=== PATIENT | female | born 1995 | race Caucasian/White ===

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

== ENCOUNTER → 2018-03-24 | Outpatient (CLI) | payer BC ==
[~2018-03-24] MED LIST changes: +ACET1TAB43 PO; +DOCU100C37 PO; +FERR325T18 PO; +IBUP-1773 PO
--- NOTE | 2018-03-24 16:00 | Diagnostic Imaging Report ---
INDICATION: survey. TECHNIQUE: Multiple real-time grayscale images were obtained over the gravid uterus. COMPARISON: None. FINDINGS: There is a single live fetus in a variable presentation. heart rate was recorded at 150 beats per minute. Placenta is anterior. Amniotic fluid volume is normal. survey demonstrates kidneys, bladder and stomach to be unremarkable. brain is unremarkable. There is a four-chamber heart. There is a three-vessel cord with normal insertion. The spine is unremarkable. Biometrical measurements are as follows: Biparietal 4.49 cm, age 19 weeks 5 days. Head circumference 17.76 cm, age 20 weeks 2 days. Abdominal circumference 15.48 cm, age 20 weeks 5 days. Femur length 3.42 cm, age 20 weeks 6 days. Sonographic estimate age: 20 weeks 3 days. Sonographic estimated date of delivery: 08/08/18. Estimated Weight: 365 gm (+/- 53 gm). LMP percentile: 47%. heart rate: 150 beats per minute. number: 1 of 1. IMPRESSION: Single live IUP 20 weeks 3 days gestational age. The estimated date of confinement sonographically is 08/08/2018. No complicating features are identified. Dictated by: Dictated on workstation # [id number]
== END ==
LOC: RAD 13:36
PROVIDERS: ATTEND Obstetrics & Gynecology
DX: Z36.89 Encounter for other specified antenatal screening (principal); Z3A.20 20 weeks gestation of pregnancy
CPT/HCPCS: 76805

== ENCOUNTER 2018-07-29 18:50 | Inpatient (IN) | payer BC ==
[~2018-07-29] VITALS: Ht 170.2 cm; Wt 77.1 kg
[2018-07-29] MEDS: D5 LR IV SOLUTION 1,000 ML IV SCH ×2 (08:00→22:11)
--- NOTE | 2018-07-29 18:55 | NUR ---
KAVYA JUNIOR presented to unit via from ED for induction of labor, accompanied by and mom. KAVYA JUNIOR weighed, gowned, voided, and to bed. EFHM and TOCO applied, VS taken. KAVYA JUNIOR oriented to bed controls, call light, TV, heat, and A/C controls.
--- OUTSIDE RECORDS SUMMARY | 2018-07-29 19:11 | XMS REPORT ---
Author Author GENOVEVA CABRERA Organization [employer] Address Unknown Phone Unavailable Care Team Providers Care Coffee Maker Servicer Name Role Phone GENOVEVA CABRERA CP Unavailable Allergies No Known Allergies Problems Problem Type Condition Code Onset Dates Condition Status Assessment Encounter for immunization Z23 Active Problem Other general medical examination for administrative purposes V70.3 Active Medications No Known Medications Procedures Procedure Coding System Code Date VARICELLA CPT-4 96162 Apr 18, 2015 SINGLE IMMUNIZATION ADMIN CPT-4 68748 Apr 18, 2015 MENINGOCOCCAL (MENVEO) CPT-4 25196 Apr 18, 2015 IMMUNIZATION ADMIN, EACH ADD (please include units) CPT-4 62352 Apr 18, 2015 Results No Known Results Immunizations Vaccine Administration Date MENINGOCOCCAL (MENVEO) Apr 18, 2015 VARICELLA Apr 18, 2015 Summary Purpose [employer] Submission
--- OUTSIDE RECORDS SUMMARY | 2018-07-29 19:12 | XMS REPORT | Continuity of Care Document ---
Demographics Preferred Language Unknown Marital Status Unknown Druze Affiliation Unknown Race Unknown Ethnic Group Unknown Author Author [facility] Address Unknown Phone Unavailable Allergies Active Description Code Type Severity Reaction Onset Reported/Identified Relationship to Patient Clinical Status Yes No Known Drug Allergies [id number] Drug Allergy Unknown N/A 04/11/2013 Medications There is no data. Problems Date Dx Coded Attending Type Code Diagnosis Diagnosed By 11/12/2012 V70.3 SPORTS PHYSICAL 04/11/2013 SUSAN MALDONADO Ot 034.0 STREP SORE THROAT 04/11/2013 SUSAN MALDONADO Ot 462 ACUTE PHARYNGITIS 11/15/2015 SUSAN MALDONADO Ot T63.441A TOXIC EFFECT OF [place]OM [place], ACCIDENTA 11/15/2015 SUSAN MALDONADO Ot T78.3XXA ANGIONEUROTIC EDEMA, INITIAL ENCOUNTER 11/16/2015 SUSAN MALDONADO Ot T63.441A TOXIC EFFECT OF [place]OM [place], ACCIDENTA 11/16/2015 SUSAN MALDONADO Ot T78.3XXA ANGIONEUROTIC EDEMA, INITIAL ENCOUNTER 11/17/2015 SUSAN MALDONADO Ot T63.441A TOXIC EFFECT OF VENOM OF [place], ACCIDENTA 11/17/2015 SUSAN MALDONADO Ot T78.3XXA ANGIONEUROTIC EDEMA, INITIAL ENCOUNTER 08/01/2016 MASOUD WILSON DO Ot D62 ACUTE POSTHEMORRHAGIC ANEMIA 08/01/2016 MASOUD WILSON DO Ot O13.4 GESTATNL HTN WITHOUT SIGNIFICANT PROTEIN 08/01/2016 MASOUD WILOSN DO Ot O70.21 THIRD DEGREE PERINEAL LACERATION DURING 08/01/2016 MASOUD WILSON DO Ot O90.81 ANEMIA OF THE PUERPERIUM 08/01/2016 MASOUD WILSON DO Ot Z37.0 SINGLE LIVE 08/01/2016 MASOUD WILSON DO, Ot Z3A.39 39 WEEKS GESTATION OF 03/25/2018 MASOUD WILSON DO Ot Z36.89 ENCOUNTER FOR OTHER SPECIFIED 03/25/2018 MASOUD WILSON DO, Ot Z3A.20 20 WEEKS GESTATION OF Procedures Code [place] [address] VISUAL ACUITY SCREEN 11/19/2012 [id number] REPAIR ANAL SPHINCTER, OPEN APPROACH 07/31/2016 [id number] DIVISION OF FEMALE PERINEUM, EXTERNAL AP 07/31/2016 12I67S6 EXTRACTION OF PRODUCTS OF CONCEPTION, [place] 07/31/2016 [id number] INTRODUCE OF OTH THERAP SUBST INTO MOUTH 07/31/2016 Results Test Result Range Complete blood count (CBC) with automated white blood cell (WBC) differential - 07/30/16 20:00 Blood leukocytes automated count (number/volume) 12.3 10*3/uL 4.3-11.0 Blood erythrocytes automated count (number/volume) 3.54 10*6/uL 4.35-5.85 Venous blood hemoglobin measurement (mass/volume) 10.1 g/dL 11.5-16.0 Blood hematocrit (volume fraction) 29 % 35-52 Automated erythrocyte mean corpuscular volume 83 [foz_us] 80-99 Automated erythrocyte mean corpuscular hemoglobin (mass per erythrocyte) 29 pg 25-34 Automated erythrocyte mean corpuscular hemoglobin concentration measurement ( mass/volume) 34 g/dL 32-36 Automated erythrocyte distribution width ratio 13.2 % 10.0-14.5 Automated blood platelet count (count/volume) 328 10*3/uL 130-400 Automated blood platelet mean volume measurement 9.9 [foz_us] 7.4-10.4 Automated blood neutrophils/100 leukocytes 75 % 42-75 Automated blood lymphocytes/100 leukocytes 17 % 12-44 Blood monocytes/100 leukocytes 7 % 0-12 Automated blood eosinophils/100 leukocytes 1 % 0-10 Automated blood basophils/100 leukocytes 0 % 0-10 Blood neutrophils automated count (number/volume) 9.3 10*3 1.8-7.8 Blood lymphocytes automated count (number/volume) 2.1 10*3 1.0-4.0 Blood monocytes automated count (number/volume) 0.9 10*3 0.0-1.0 Automated eosinophil count 0.1 10*3/uL 0.0-0.3 Automated blood basophil count (count/volume) 0.0 10*3/uL 0.0-0.1 Comprehensive metabolic panel - 07/30/16 20:00 Serum or plasma sodium measurement (moles/volume) 137 mmol/L 135-145 Serum or plasma potassium measurement (moles/volume) 3.0 mmol/L 3.6-5.0 Serum or plasma chloride measurement (moles/volume) 107 mmol/L 98-107 Carbon dioxide 16 mmol/L 21-32 Serum or plasma anion gap determination (moles/volume) 14 mmol/L 5-14 Serum or plasma urea nitrogen measurement (mass/volume) 3 mg/dL 7-18 Serum or plasma creatinine measurement (mass/volume) 0.68 mg/dL 0.60-1.30 Serum or plasma urea nitrogen/creatinine mass ratio 4 NRG Serum or plasma creatinine measurement with calculation of estimated glomerular filtration rate > NRG Serum or plasma glucose measurement (mass/volume) 124 mg/dL 70-105 Serum or plasma calcium measurement (mass/volume) 8.3 mg/dL 8.5-10.1 Serum or plasma total bilirubin measurement (mass/volume) 0.5 mg/dL 0.1-1.0 Serum or plasma alkaline phosphatase measurement (enzymatic activity/volume) 259 U/L 40-136 Serum or plasma aspartate aminotransferase measurement (enzymatic activity/ volume) 16 U/L 5-34 Serum or plasma alanine aminotransferase measurement (enzymatic activity/volume ) 9 U/L 0-55 Serum or plasma protein measurement (mass/volume) 5.8 g/dL 6.4-8.2 Serum or plasma albumin measurement (mass/volume) 3.1 g/dL 3.2-4.5 Serum or plasma uric acid measurement (mass/volume) - 07/30/16 20:00 Serum or plasma uric acid measurement (mass/volume) 4.1 mg/dL 2.6-7.2 Blood type T Indirect antibody screen panel - 07/30/16 20:00 ABO+Rh group AP [facility] Transfusion band number [id number] [facility] Blood group antibody screen NEGATIVE [facility] Complete blood count (CBC) with automated white blood cell (WBC) differential - 08/01/16 06:05 Blood leukocytes automated count (number/volume) 14.3 10*3/uL 4.3-11.0 Blood erythrocytes automated count (number/volume) 3.00 10*6/uL 4.35-5.85 Venous blood hemoglobin measurement (mass/volume) 8.5 g/dL 11.5-16.0 Blood hematocrit (volume fraction) 25 % 35-52 Automated erythrocyte mean corpuscular volume 83 [foz_us] 80-99 Automated erythrocyte mean corpuscular hemoglobin (mass per erythrocyte) 28 pg 25-34 Automated erythrocyte mean corpuscular hemoglobin concentration measurement ( mass/volume) 34 g/dL 32-36 Automated erythrocyte distribution width ratio 13.1 % 10.0-14.5 Automated blood platelet count (count/volume) 330 10*3/uL 130-400 Automated blood platelet mean volume measurement 10.0 [foz_us] 7.4-10.4 Automated blood neutrophils/100 leukocytes 66 % 42-75 Automated blood lymphocytes/100 leukocytes 24 % 12-44 Blood monocytes/100 leukocytes 9 % 0-12 Automated blood eosinophils/100 leukocytes 1 % 0-10 Automated blood basophils/100 leukocytes 1 % 0-10 Blood neutrophils automated count (number/volume) 9.4 10*3 1.8-7.8 Blood lymphocytes automated count (number/volume) 3.4 10*3 1.0-4.0 Blood monocytes automated count (number/volume) 1.2 10*3 0.0-1.0 Automated eosinophil count 0.2 10*3/uL 0.0-0.3 Automated blood basophil count (count/volume) 0.1 10*3/uL 0.0-0.1 Encounters ACCT No. Visit Date/Time Discharge Status Pt. Type Provider Facility Loc./Unit Complaint [id number] 11/12/2012 13:29:00 Document Registration [id number] 03/24/2018 13:36:00 03/24/2018 23:59:59 CLS Outpatient NEALRAQUEL MASOUD BELLAMY S [facility] RAD [id number] 07/30/2016 19:20:00 08/01/2016 13:15:00 DIS Inpatient MASOUD WILSON DO S [facility] LDRP INDUCTION [id number] 11/15/2015 21:10:00 11/15/2015 22:20:00 DIS Emergency SUSAN MALDONADO [facility] ER BEE STING ON RIGHT FOOT [id number] 04/11/2013 12:30:00 04/11/2013 13:29:00 DIS Emergency SUSAN MALDONADO [facility] ER [id number] 07/29/2018 18:50:00 ACT Inpatient MASOUD WILSON DO [facility] LDRP INDUCTION
[2018-07-29 19:24] VITALS: BP 126/82
[2018-07-29] MEDS ORDERED: LACTATED RINGERS 1,000 ML IV SCH (19:37)
[2018-07-29] MEDS ORDERED: MISOPROSTOL 100 MCG (CYTOTEC) TAB PO ONE (19:45)
[2018-07-29] MEDS ORDERED: MINERAL OIL CONCENTRATE 99.9% 15 ML UDC TOP PRN (19:45)
[2018-07-29 20:25] LABS: BASOPHILS % (AUTO) 0 % (0-10); EOSINOPHILS # (AUTO) 0.1 10^3/uL (0.0-0.3); EOSINOPHILS % (AUTO) 1 % (0-10); HEMATOCRIT 37 % (35-52); HEMOGLOBIN 12.9 G/DL (11.5-16.0); LYMPHOCYTES # (AUTO) 2.3 X 10^3 (1.0-4.0); LYMPHOCYTES % (AUTO) 22 % (12-44); MEAN CORPUSCULAR HEMOGLOBIN 32 PG (25-34); MEAN CORPUSCULAR HGB CONC 35 G/DL (32-36); MEAN CORPUSCULAR VOLUME 90 FL (80-99); MEAN PLATELET VOLUME 9.7 FL (7.4-10.4); MONOCYTES # (AUTO) 1.3 X 10^3 (0.0-1.0); MONOCYTES % (AUTO) 12 % (0-12); NEUTROPHILS % (AUTO) 66 % (42-75); PLATELET COUNT 289 10^3/uL (130-400); RED CELL DISTRIBUTION WIDTH 14.6 % (10.0-14.5); WHITE BLOOD COUNT 10.7 10^3/uL (4.3-11.0)
[2018-07-29 21:22] VITALS: BP 137/80
[2018-07-29] MEDS ORDERED: CATHETER FLUSH 10 ML SYR IV SCH (22:00)
[2018-07-29 22:10] VITALS: BP 114/65
[2018-07-29 22:40] VITALS: BP 112/62
[2018-07-29 23:40] VITALS: BP 109/55
--- NOTE | 2018-07-29 23:40 | NUR ---
Strip reviewed with second nurse. Nurses in agreement that strip shows prolonged accelerations at this time.
[2018-07-29] MEDS ORDERED: MISOPROSTOL 100 MCG (CYTOTEC) TAB PO SCH (23:45)
[2018-07-30] VITALS (52 sets, daily range): BP systolic 77–151; BP diastolic 52–87
--- NOTE | 2018-07-30 03:45 | NUR ---
Nurse in to check on pt. Pt is sleeping soundly and does not wake when nurse enters the room.
[2018-07-30] MEDS: D5 LR IV SOLUTION 1,000 ML IV SCH (06:03)
--- NOTE | 2018-07-30 07:33 | History & Physical-OB ---
OB - Chief Complaint & HPI Date/Time Date of Admission: Date of Admission: Jul 29, 2018 at 18:50 Date seen by a Provider: Jul 30, 2018 Time Seen by a Provider: 07:30 Chief Complaint/History OB-Reason for Admission/Chief: Induction of Labor Hx : 2 Hx Para: 1 Expected Date of Delivery: Aug 06, 2018 Gestational Age in Weeks: 38 Gestational Age in Days: 6 History of Labs A pos Antibody neg RI RPR NR HBsAg NR HIV NR GC neg GBS neg Allergies and Home Medications Allergies Coded Allergies: No Known Drug Allergies (Unverified , 04/11/13) Home Medications Acetaminophen with Codeine 1 Each Tablet, 1-2 TAB PO Q4H PRN for MODERATE TO SEVERE PAIN Prescribed by: MASOUD WILSON on 07/31/16455 Cefdinir 250 Mg/5 Ml Susp.recon, 6 ML PO BID Prescribed by: SUSAN DOMÍNGUEZ on 04/11/13 1306 Docusate Sodium 100 Mg Capsule, 100 MG PO BID PRN for CONSTIPATION Prescribed by: MASOUD WILSON on 07/31/16455 Famotidine 20 Mg Tablet, 20 MG PO BID Prescribed by: SUSAN DOMÍNGUEZ on 11/15/15 2210 Ferrous Sulfate 325 Mg Tablet, 325 MG PO DAILY Prescribed by: MASOUD WILSON on 07/31/16455 Ibuprofen 600 Mg Tablet, 600 MG PO Q6H Prescribed by: MASOUD WILSON on 07/31/16455 Prednisone 20 Mg Tab, 40 MG PO DAILY Prescribed by: SUSAN DOMÍNGUEZ on 11/15/15 2210 Patient Home Medication List Home Medication List Reviewed: Yes OB - History Hx of Present Care: Yes Ultrasounds: Normal mid trimester US Obstetrical Complications: None Medical Complications: None Delivery History Hx Blood Disorders: No Adverse Rxn to Tranfusion: No Patient Past Medical History n/a Social History/Family History Alcohol Use: Denies Use Recreational Drug Use: No Immunizations Hepatitis A: Yes Hepatitis B: Yes Tetanus Booster (TDap): Less than 5yrs Date of Influenza Vaccine: Mar 01, 2018 OB - Admission Exam Physical Exam Vitals: Vital Signs 07/30/18 05:53 Temp 98.3 Pulse 100 Resp 18 B/P (MAP) 126/69 (88) HEENT: NCAT Heart: Rhythm Normal Lungs: Clear Abdomen: Gravid Extremities: Normal Reflexes: Normal Cervical Dilatation: 2cm Effacement: 75% Station: -1 Membranes: Intact Heart Rate: 130's Accelerations: Accelerations Present Decelerations: No Decelerations Short Term Variability: Present Care Home Variability: Average (6-25) Contractions on Admission: 6-10 Minutes Apart Gooden Scoring Tool (Modified) Dilation (cm): 1-2cm (1) Effacement (%): 51-79% (2) Descent/Station: -1,0 (2) Cervix Consistency: Soft (2) Cervix Position: Anterior (2) Add 1 point for: Each previous vaginal delivery (1) Gooden Score: 10 Labs Laboratory Tests Test 07/29/18 20:00 Range/Units White Blood Count 10.7 4.3-11.0 10^3/uL Red Blood Count 4.05 L 4.35-5.85 10^6/uL Hemoglobin 12.9 11.5-16.0 G/DL Hematocrit 37 35-52 % Mean Corpuscular Volume 90 80-99 FL Mean Corpuscular Hemoglobin 32 25-34 PG Mean Corpuscular Hemoglobin Concent 35 32-36 G/DL Red Cell Distribution Width 14.6 H 10.0-14.5 % Platelet Count 289 130-400 10^3/uL Mean Platelet Volume 9.7 7.4-10.4 FL Neutrophils (%) (Auto) 66 42-75 % Lymphocytes (%) (Auto) 22 12-44 % Monocytes (%) (Auto) 12 0-12 % Eosinophils (%) (Auto) 1 0-10 % Basophils (%) (Auto) 0 0-10 % Neutrophils # (Auto) 7.0 1.8-7.8 X 10^3 Lymphocytes # (Auto) 2.3 1.0-4.0 X 10^3 Monocytes # (Auto) 1.3 H 0.0-1.0 X 10^3 Eosinophils # (Auto) 0.1 0.0-0.3 10^3/uL Basophils # (Auto) 0.0 0.0-0.1 10^3/uL OB - Assessment/Plan/Diagnosis Assessment Assessment: induction of labor Admission Dx 23 yo @ 39 weeks Elective induction of labor GBS neg Admission Status: Inpatient Order (span 2 midnights) Reason for Inpatient Admission: Induction of labor at term Plan Plan: Induction Induction Method: per Misoprostol Protocol MASOUD WILSON DO Jul 30, 2018 07:33
[2018-07-30] MEDS ORDERED: OXYTOCIN/NORMAL SALINE 500 ML IV SCH (07:43)
[2018-07-30] MEDS ORDERED: OXYTOCIN/NORMAL SALINE 500 ML IV ONE (07:45)
[2018-07-30] MEDS ORDERED: SUFENTA 0.6MCG/ML BUPIVA 0.125 100 ML ONE (07:59)
[2018-07-30] MEDS ORDERED: fentaNYL INJECTION 100 MCG/2 ML AMP ONE (08:17)
[2018-07-30] MEDS ORDERED: BUPIVACAINE 0.25% 30 ML (SENSORCAINE) VIAL ONE (08:17)
[2018-07-30] MEDS ORDERED: LIDOCAINE PF 2% 5 ML (XYLOCAINE) VIAL ONE (08:17)
--- NOTE | 2018-07-30 08:20 | NUR ---
An Painter CRNA, Erica SRNA here for epidural placement. Procedure explained, consent reviewed and signed by anesthesia. Questions answered to patient's satisfaction. Time out taken to verify correct patient/procedure. Patient up to side of bed, assisted into sitting position. Betadine prep done x3 and sterile drape applied. Local done, see anesthesia record. Attempt unsuccessful, will send another provider.
--- NOTE | 2018-07-30 09:13 | NUR ---
Dr. Trujillo called and notified of difficulty with epidural placement. Order for 1mg dilaudid rec'd.
[2018-07-30] MEDS ORDERED: HYDROmorphone 2 MG/ML VIAL (DILAUDID) ONE (09:17)
--- NOTE | 2018-07-30 09:20 | NUR ---
Dr. Bello here for epidural placement. Procedure explained, consent reviewed and signed by anesthesia. Questions answered to patient's satisfaction. Time out taken to verify correct patient/procedure. Patient up to side of bed, assisted into sitting position. Betadine prep done x3 and sterile drape applied. Local done, see anesthesia record. Test dose given, see anesthesia record for drug and dosage. Epidural catheter secured in place. Epidural placement complete. Assisted back into bed, monitors adjusted. Epidural dosed, see anesthesia record. Epidural of Sufenta/Bupvicaine @12 cc/hr stated per pump. Patient tolerated procedure well.
[2018-07-30] MEDS ORDERED: HYDROmorphone 2 MG/ML VIAL (DILAUDID) IV ONE (09:30)
[2018-07-30] MEDS ORDERED: LACTATED RINGERS 1,000 ML IV ONE (10:40)
[2018-07-30] MEDS ORDERED: NALOXONE 0.4 MG/ML 1 ML (NARCAN) VIAL IV PRN (10:45)
[2018-07-30] MEDS ORDERED: EPIDURAL (SUFENTA 0.6MCG/ML BUPIVA 0.125%) 100 ML BAG EPI SCH (10:45)
[2018-07-30] MEDS ORDERED: ONDANSETRON 4 MG/2 ML (SDV) Z0FRAN IV PRN (10:45)
[2018-07-30] MEDS ORDERED: diphenhydrAMINE 50 MG/ML INJ (BENADRYL) IV PRN (10:45)
[2018-07-30] MEDS ORDERED: CATHETER FLUSH 10 ML SYR IV PRN (10:45)
[2018-07-30] MEDS ORDERED: LIDOCAINE/EPI 2% 1:200,00 (XYLOCAINE) 10 ML VIAL ONE (11:59)
[2018-07-30] MEDS: OXYTOCIN/NORMAL SALINE 500 ML IV SCH ×2 (12:22→12:59)
[2018-07-30] MEDS ORDERED: BENZOCAINE/MENTHOL (DERMOPLAST) 56 ML CAN TP PRN (12:45)
[2018-07-30] MEDS ORDERED: WITCH HAZEL(TUCKS) 40 EA JAR TOP PRN (12:45)
[2018-07-30] MEDS ORDERED: MEASLES,MUMPS,RUBELLA 1 EA INJ SQ ONE (12:45)
[2018-07-30] MEDS ORDERED: DIBUCAINE (NUPERCAINAL) 1% OINT 30 GM TOP PRN (12:45)
[2018-07-30] MEDS ORDERED: HYDROcodone/APAP 5 MG/325 MG (LORTAB) TAB PO PRN (12:45)
[2018-07-30] MEDS ORDERED: TETANUS,DIPTH,PERTUSS P/F (BOOSTRIX) 0.5 ML VIAL IM ONE (12:45)
--- NOTE | 2018-07-30 13:01 | OB Labor & Delivery Record ---
L&D History Date of Service Date of Service: Jul 30, 2018 History Expected Date of Delivery: Aug 06, 2018 Gestational Age in Weeks: 38 Hx : 2 Hx Para: 1 Complications Events: Routine care Operative Indications (Cesarea: N/A-Vaginal Delivery Intrapartal Events: None L&D Stage1 Stage One Onset of Labor - Date: Jul 30, 2018 Monitors and Tracing Monitor Mode: External Heart Rate: 135 Monitor Accelerations: Uniform Station: -1 Workforce [employer] Career Manager Variability: Average (6-10) Short Term Variability: Present Presentation: Vertex Vital Signs VS - Last 72 Hours, by Label 07/29/18 07/29/18 07/29/18 07/29/18 19:24 21:22 22:10 22:40 Temp 98.7 Pulse 122 109 93 90 Resp 20 18 18 18 B/P (MAP) 126/82 (97) 137/80 (99) 114/65 (81) 112/62 (79) 07/29/18 07/30/18 07/30/18 07/30/18 23:40 00:40 01:40 02:40 Temp 97.0 Pulse 84 82 74 89 Resp 18 18 18 18 B/P (MAP) 109/55 (73) 114/57 (76) 112/58 (76) 119/72 (88) 07/30/18 07/30/18 07/30/18 07/30/18 03:40 04:40 05:53 07:30 Temp 98.3 98.5 Pulse 75 75 100 Resp 18 18 18 B/P (MAP) 109/55 (73) 108/56 (73) 126/69 (88) 07/30/18 07/30/18 07/30/18 07/30/18 07:45 08:05 08:20 08:28 Pulse 98 82 93 103 Resp 18 18 18 18 B/P (MAP) 126/82 (97) 127/63 (84) 117/59 (78) 132/58 (82) Pulse Ox 100 07/30/18 07/30/18 07/30/18 07/30/18 08:38 08:43 08:47 08:52 Pulse 89 100 114 100 Resp 18 18 18 18 B/P (MAP) 132/74 (93) 129/79 (96) 129/79 (96) 126/77 (93) Pulse Ox 100 100 100 97 07/30/18 07/30/18 07/30/18 07/30/18 08:57 09:02 09:07 09:12 Pulse 108 109 111 90 Resp 18 18 18 18 B/P (MAP) 128/82 (97) 129/75 (93) 151/81 (104) 136/71 (92) Pulse Ox 97 98 100 99 07/30/18 07/30/18 07/30/18 07/30/18 09:17 09:23 09:25 09:27 Pulse 96 110 96 85 Resp 18 18 18 18 B/P (MAP) 133/82 (99) 141/75 (97) 134/76 (95) 126/65 (85) Pulse Ox 99 100 97 97 07/30/18 07/30/18 07/30/18 07/30/18 09:32 09:37 09:42 09:47 Pulse 91 91 98 97 Resp 18 18 18 18 B/P (MAP) 129/61 (83) 124/60 (81) 122/57 (78) 111/62 (78) Pulse Ox 97 97 97 97 07/30/18 07/30/18 07/30/18 07/30/18 09:53 09:57 10:02 10:07 Temp 98.0 Pulse 77 92 98 99 Resp 18 18 18 18 B/P (MAP) 120/62 (81) 120/63 (82) 120/63 (82) 130/65 (86) Pulse Ox 95 97 100 97 07/30/18 07/30/18 07/30/18 07/30/18 10:12 10:17 10:23 10:27 Pulse 102 91 85 89 Resp 18 18 18 18 B/P (MAP) 98/52 (67) 129/56 (80) 117/62 (80) 124/68 (86) Pulse Ox 100 100 100 99 Rupture of Membranes Spontaneous Ruture of Membrane: No Amniotic Membrane Rupture Time: 726 Amniotic Membrane Fluid Desc.: Clear Vaginal Bleeding Description: Normal Show Induction/Anesthesia Epidural Cath Placement - Time: 09 Progress/Notes Pitocin Augmentation started and epidural received shortly after AROM L&D Stage2 Stage Two Stage II Date: Jul 30, 2018 Monitors and Tracing Monitor Mode: External Heart Rate: 135 Monitor Accelerations: Uniform Monitor Decelerations: Early Workforce Investment Act Career Manager Variability: Average (6-10) Short Term Variability: Present Position: Right Occiput Anterior Presentation: Vertex Cord Descript/Complications Cord Vessel Description: 3 Vessels Complications nuchal cord x 1 reduced Delivery Type Infant Delivery Method: Spontaneous Vaginal Anterior Shoulder: Right Episiotomy/Perineal Laceration Laceraction(s)/Extensions: Yes Degree (describe repair) left labial laceration repaired using 3-0 rapide Condition of Infant Delivery 1 minute Comment: 7 5 minute Comment: 9 Notes Live female infant Condition of Infant Condition of : Living Exam: No Observed Abnormalities Resuscitation Resuscitation: N/A - Spontaneous Resp L&D Stage3 Stage Three Stage III Date: Jul 30, 2018 Pictocin Pitocin Administration mu/min: 4 Pitocin ml/hr: 4 Pitocin Administration Comment: Pitocin initiated per Dr. Wilson protocol Placenta Delivery Placenta Delivery: Spontaneous Delivery Summary Summary Estimated blood loss (mL): 350 350 Attending at delivery: Masoud Wilson DO Condition of Delivery Examined: Cervix Examined, Uterus Explored Post Hemorrhage: No Condition of Mother stable Condition of (s) stable MASOUD WILSON DO Jul 30, 2018 13:01
--- NOTE | 2018-07-30 13:02 | Discharge Inst-Women's Service ---
Discharge Inst-Women's Serv Depart Medication/Instructions New, Converted or Re-Newed RX: RX on Chart Final Diagnosis Dr. Wilson in 6 weeks Consults/Follow Up Additional Follow Up: Yes Activity Activity: Activity as Tolerated Driving Instructions: No Driving for 1 Week NO SMOKING: NO SMOKING Nothing Inside Vagina: No Douching, No [place], No Tampons Diet Discharge Diet: No Restrictions Symptoms to Report to : Bleeding Excessive, Pain Increased, Fever Over 101 Degrees F, Vaginal Bleeding Increase, Questions/Concerns For Any Problems or Questions: Contact Your Physician MASOUD WILSON DO Jul 30, 2018 13:02
[2018-07-30] MEDS ORDERED: ACHD5005 PO (13:04)
[2018-07-30] MEDS ORDERED: Benzocaine/Menthol TP (13:04)
[2018-07-30] MEDS ORDERED: DOCU100C37 PO (13:04)
[2018-07-30] MEDS ORDERED: IBUP-844 PO (13:04)
--- NOTE | 2018-07-30 13:52 | Progress Note-Standard ---
Standard Progress Note Progress Notes/Assess & Plan Date Seen by a Provider: Jul 30, 2018 Time Seen by a Provider: 08:20 Progress/Assessment & Plan 0820 till 0900 multiple epidural attmepts without successful placement. dr mcnulty notified PAMELLA KITCHEN CRNA Jul 30, 2018 13:52
[2018-07-30] MEDS ORDERED: CATHETER FLUSH 10 ML SYR IV SCH (14:00)
[2018-07-30] MEDS: IBUPROFEN 600 MG (MOTRIN) TAB PO SCH ×2 (14:44→21:01)
--- NOTE | 2018-07-30 14:45 | NUR ---
Pericare performed, fresh vpad and underwear applied, ice pack to perineum. New gown on. Pt assisted to standing position, ambulates to bathroom without difficulty. +void. Pt ambulates self to room 310 accompanied by RN, S.O., infant. Pt oriented to room and call light. packet explained. Pt denies needs or concerns at this time.
[2018-07-30] MEDS: DOCUSATE SODIUM 100 MG (COLACE) CAP PO SCH (21:01)
[2018-07-31 01:36] VITALS: BP 110/68
[2018-07-31] MEDS: IBUPROFEN 600 MG (MOTRIN) TAB PO SCH ×3 (03:10→14:56)
[2018-07-31 05:53] VITALS: BP 104/55
[2018-07-31 05:57] LABS: BASOPHILS % (AUTO) 0 % (0-10); EOSINOPHILS # (AUTO) 0.1 10^3/uL (0.0-0.3); EOSINOPHILS % (AUTO) 1 % (0-10); HEMATOCRIT 31 % (35-52); HEMOGLOBIN 10.5 G/DL (11.5-16.0); LYMPHOCYTES % (AUTO) 28 % (12-44); MEAN CORPUSCULAR HEMOGLOBIN 31 PG (25-34); MEAN CORPUSCULAR HGB CONC 34 G/DL (32-36); MEAN CORPUSCULAR VOLUME 92 FL (80-99); MEAN PLATELET VOLUME 9.5 FL (7.4-10.4); MONOCYTES # (AUTO) 1.5 X 10^3 (0.0-1.0); MONOCYTES % (AUTO) 14 % (0-12); NEUTROPHILS # (AUTO) 6.1 X 10^3 (1.8-7.8); NEUTROPHILS % (AUTO) 57 % (42-75); PLATELET COUNT 219 10^3/uL (130-400); RED CELL DISTRIBUTION WIDTH 14.6 % (10.0-14.5); WHITE BLOOD COUNT 10.8 10^3/uL (4.3-11.0)
--- NOTE | 2018-07-31 06:44 | Postpartum Progress Note ---
Note Note Day # 1 Subjective: Patient is without complaints. Ambulating, voiding. Tolerating a regular diet without nausea or vomiting. Normal lochia. Pain is well controlled with oral pain medications. Objective: Physical Exam: General - Alert and oriented, no apparent distress Abdomen - Soft, appropriately tender to palpation, non-distended, fundus firm at umbilicus Extremities - no edema, negative [place]'s bilaterally Assessment: PPD 1 NVD Acute blood loss anemia Plan: Routine care. Encourage breast feeding. Encourage ambulation. Ferrous sulfate supplementation. Plan for discharge today Vitals - Labs Vital Signs - I&O Vital Signs Date Time Temp Pulse Resp B/P (MAP) Pulse Ox O2 Delivery O2 Flow Rate FiO2 07/31/18 05:53 97.7 58 104/55 (71) 97 Room Air 07/31/18 01:36 98.9 73 16 110/68 (82) 98 Room Air 07/30/18 21:57 98.0 72 16 119/70 (86) 97 Room Air 07/30/18 18:00 98.9 110 18 125/75 (92) 07/30/18 14:19 99.4 105 18 137/86 (103) 07/30/18 14:04 111 18 126/87 (100) 07/30/18 13:57 103 18 129/75 (93) 07/30/18 13:34 99 18 124/59 (80) 07/30/18 13:20 108 18 137/63 (87) 07/30/18 13:05 104 18 128/62 (84) 07/30/18 12:54 101 18 128/62 (84) 07/30/18 12:50 109 18 77/56 (63) 07/30/18 12:35 103 18 108/56 (73) 07/30/18 12:19 98.9 110 18 124/69 (87) 07/30/18 12:05 129 18 129/75 (93) 07/30/18 11:55 85 18 124/60 (81) 07/30/18 11:35 97.9 95 18 134/71 (92) 07/30/18 11:20 104 18 129/74 (92) 07/30/18 11:05 98 18 118/59 (78) 07/30/18 10:50 101 18 123/59 (80) 07/30/18 10:27 89 18 124/68 (86) 99 07/30/18 10:23 85 18 117/62 (80) 100 07/30/18 10:17 91 18 129/56 (80) 100 07/30/18 10:12 102 18 98/52 (67) 100 07/30/18 10:07 99 18 130/65 (86) 97 07/30/18 10:02 98.0 98 18 120/63 (82) 100 07/30/18 09:57 92 18 120/63 (82) 97 07/30/18 09:53 77 18 120/62 (81) 95 07/30/18 09:47 97 18 111/62 (78) 97 07/30/18 09:42 98 18 122/57 (78) 97 07/30/18 09:37 91 18 124/60 (81) 97 07/30/18 09:32 91 18 129/61 (83) 97 07/30/18 09:27 85 18 126/65 (85) 97 07/30/18 09:25 96 18 134/76 (95) 97 07/30/18 09:23 110 18 141/75 (97) 100 07/30/18 09:17 96 18 133/82 (99) 99 07/30/18 09:12 90 18 136/71 (92) 99 07/30/18 09:07 111 18 151/81 (104) 100 07/30/18 09:02 109 18 129/75 (93) 98 07/30/18 08:57 108 18 128/82 (97) 97 07/30/18 08:52 100 18 126/77 (93) 97 07/30/18 08:47 114 18 129/79 (96) 100 07/30/18 08:43 100 18 129/79 (96) 100 07/30/18 08:38 89 18 132/74 (93) 100 07/30/18 08:28 103 18 132/58 (82) 100 07/30/18 08:20 93 18 117/59 (78) 07/30/18 08:05 82 18 127/63 (84) 07/30/18 07:45 98 18 126/82 (97) 07/30/18 07:30 98.5 I & O 07/31/18 07:00 Intake Total 3000 ml Balance 3000 ml Labs Laboratory Tests 07/31/18 05:45: White Blood Count 10.8, Red Blood Count 3.34L, Hemoglobin 10.5L, Hematocrit 31L , Mean Corpuscular Volume 92, Mean Corpuscular Hemoglobin 31, Mean Corpuscular Hemoglobin Concent 34, Red Cell Distribution Width 14.6H, Platelet Count 219, Mean Platelet Volume 9.5, Neutrophils (%) (Auto) 57, Lymphocytes (%) (Auto) 28, Monocytes (%) (Auto) 14H, Eosinophils (%) (Auto) 1, Basophils (%) (Auto) 0, Neutrophils # (Auto) 6.1, Lymphocytes # (Auto) 3.0, Monocytes # (Auto) 1.5H, Eosinophils # (Auto) 0.1, Basophils # (Auto) 0.0 MASOUD WILSON DO Jul 31, 2018 06:44
[2018-07-31] MEDS ORDERED: PRENATAL VITAMIN 1 EA TAB PO SCH (07:00)
[2018-07-31] MEDS ORDERED: FERROUS SULF 325 MG (IRON) TAB PO SCH (07:00)
--- NOTE | 2018-07-31 07:05 | NUR ---
here. dismissal orders received.
[2018-07-31] MEDS: DOCUSATE SODIUM 100 MG (COLACE) CAP PO SCH (08:49)
[2018-07-31 08:50] VITALS: BP 113/69
--- NOTE | 2018-07-31 08:50 | NUR ---
initial shift assessment completed, see interventions for further. POC reviewed, states understanding.
--- NOTE | 2018-07-31 11:07 | Anesthesia-Regional Post-Op ---
Regional Patient Condition Mental Status: Alert, Oriented x3 Circulation: Same as Pre-Op Headache: Absent Sensation: Full Recovery Motor Block: Absent Post Op Complications Complications None Follow Up Care/Instructions Patient Instructions None needed. Anesthesia/Patient Condition Patient is doing well, no complaints, stable vital signs, no apparent adverse anesthesia problems. No complications reported per nursing. VIRGIL MILLER CRNA Jul 31, 2018 11:07
--- NOTE | 2018-07-31 14:36 | NUR ---
dismissal instructions given, verbalizes understanding. reviewed follow up appointment and Rx's. signature page singed, placed on chart.
--- NOTE | 2018-07-31 15:07 | NUR ---
pt ambulated to private vehicle with this RN, and infant @ side. secured in rear facing car seat. pt stable with no sx's of distress noted.
== END 2018-07-31 15:07 | disposition home or self-care (01) | DRG 806 ==
LOC: LDRP 18:50
PROVIDERS: ADMIT Obstetrics & Gynecology; ATTEND Obstetrics & Gynecology
PROC: 10E0XZZ Delivery of Products of Conception, External Approach (ICD-10-PCS; principal; 2018-07-30)
PROC: 0HQ9XZZ Repair Perineum Skin, External Approach (ICD-10-PCS; 2018-07-30)
DX: O70.0 First degree perineal laceration during delivery (principal); O99.03 Anemia complicating the puerperium; D62 Acute posthemorrhagic anemia; O69.81X0 Labor and delivery complicated by cord around neck, without compression, not applicable or unspecified; Z3A.38 38 weeks gestation of pregnancy; Z37.0 Single live birth
CPT/HCPCS: 36415; 85025; 86850; 86900; 86901

== ENCOUNTER 2018-12-04 22:16 | Emergency (ER) | payer BC ==
[~2018-12-04] VITALS: Ht 170.2 cm; Wt 68.0 kg
[~2018-12-04 22:16] MED LIST changes: +ACHD5005 PO; +Benzocaine/Menthol TP; +IBUP-844 PO
--- NOTE | 2018-12-04 22:28 | ED Chest Pain ---
General Stated Complaint: R ARM AND NECK PAIN Source: patient, family Exam Limitations: no limitations (SEBASTIAN THOMPSON APRN) History of Present Illness Date Seen by Provider: Dec 04, 2018 Time Seen by Provider: 22:25 Initial Comments To ER complaint by mother with reports of right arm pain that extends from the neck down the right arm terminating at the elbow, bilateral upper back pain, tightness in her chest. Symptoms intermittent for about 3 days. Denies anxiety fevers or chills. She cannot identify any alleviating or exacerbating factors. Timing/Duration: 2-3 days Severity/Quality: moderate, tightness Location: shoulder Radiation: neck, shoulders, back Activities at Onset: none ASA po ROOM SERVICE RUNNER: No NTG SL ROOM SERVICE RUNNER: No Associated Symptoms: denies symptoms (SEBASTIAN THOMPSON APRN) Allergies and Home Medications Allergies Coded Allergies: No Known Drug Allergies (Unverified , 04/11/13) Patient Home Medication List Home Medication List Reviewed: Yes (SEBASTIAN THOMPSON APRN) Home Medication List Reviewed: Yes (BRAYAN DICKERSON) Review of Systems Review of Systems Constitutional: see HPI EENTM: No Symptoms Reported Respiratory: No Symptoms Reported Cardiovascular: See HPI, Chest Pain Gastrointestinal: No Symptoms Reported Genitourinary: No Symptoms Reported Musculoskeletal: see HPI, back pain Skin: see HPI Psychiatric/Neurological: No Symptoms Reported Endocrine: No Symptoms Reported (SEBASTIAN THOMPSON APRN) Past Ezwwefe-Nokcwm-Kzfwbb Hx Patient Social History Recent Foreign Travel: No Contact w/Someone Who Travel: No Recent Hopitalizations: No (SEBASTIAN THOMPSON APRN) Immunizations Up To Date Tetanus Booster (TDap): Less than 5yrs PED Vaccines UTD: Yes Date of Influenza Vaccine: Mar 01, 2018 (SEBASTIAN THOMPSON APRN) Seasonal Allergies Seasonal Allergies: No (SEBASTIAN THOMPSON APRN) Past Medical History Surgeries: No Respiratory: No Cardiac: No Neurological: No Reproductive Disorders: No Genitourinary: Yes Gastrointestinal: No Musculoskeletal: No Endocrine: No HEENT: No Cancer: No Psychosocial: No Integumentary: No Blood Disorders: No Adverse Reaction/Blood Tranf: No (SEBASTIAN THOMPSON APRN) Family Medical History Asthma 19 MOTHER Hypertension 19 FATHER No Pertinent Family Hx (SEBASTIAN THOMPSON APRN) Physical Exam Vital Signs Vital Signs - First Documented 12/04/18 22:20 Temp 98.4 Pulse 80 Resp 16 B/P (MAP) 116/85 (95) Pulse Ox 99 O2 Delivery Room Air (BRAYAN DICKERSON) Vital Signs Capillary Refill : (SEBASTIAN THOMPSON APRN) Height, Weight, BMI Height: 5'7.00" Weight: 170lbs. 0.0oz. [id number]; 26.6 BMI Method:Stated General Appearance: No Apparent Distress HEENT: PERRL/EOMI, TMs Normal Respiratory: No Accessory Muscle Use, No Respiratory Distress Cardiovascular: Regular Rate, Rhythm, Normal Peripheral Pulses Gastrointestinal: Normal Bowel Sounds, Non Tender, Soft Extremity: Normal Capillary Refill, Normal Inspection Neurologic/Psychiatric: Alert, Oriented x3 Skin: Normal Color, Warm/Dry (SEBASTIAN THOMPSON APRN) Progress/Results/Core Measures Results/Orders Lab Results Laboratory Tests Test 12/04/18 22:30 Range/Units White Blood Count 9.2 4.3-11.0 10^3/uL Red Blood Count 4.40 4.35-5.85 10^6/uL Hemoglobin 13.2 11.5-16.0 G/DL Hematocrit 38 35-52 % Mean Corpuscular Volume 86 80-99 FL Mean Corpuscular Hemoglobin 30 25-34 PG Mean Corpuscular Hemoglobin Concent 35 32-36 G/DL Red Cell Distribution Width 12.5 10.0-14.5 % Platelet Count 347 130-400 10^3/uL Mean Platelet Volume 9.7 7.4-10.4 FL Neutrophils (%) (Auto) 41 L 42-75 % Lymphocytes (%) (Auto) 49 H 12-44 % Monocytes (%) (Auto) 7 0-12 % Eosinophils (%) (Auto) 2 0-10 % Basophils (%) (Auto) 0 0-10 % Neutrophils # (Auto) 3.8 1.8-7.8 X 10^3 Lymphocytes # (Auto) 4.5 H 1.0-4.0 X 10^3 Monocytes # (Auto) 0.7 0.0-1.0 X 10^3 Eosinophils # (Auto) 0.2 0.0-0.3 10^3/uL Basophils # (Auto) 0.0 0.0-0.1 10^3/uL Troponin I < 0.028 <0.028 NG/ML (BRAYAN DICKERSON) Medications Given in ED Current Medications Medications Dose Ordered Sig/Bill Route Start Time Stop Time Status Last Admin Dose Admin Ibuprofen 800 mg ONCE ONCE PO 12/04/18 22:30 12/04/18 22:31 DC 12/04/18 22:39 800 MG (BRAYAN DICKERSON) Vital Signs/I&O 12/04/18 12/04/18 22:20 22:39 Temp 98.4 98.4 Pulse 80 Resp 16 B/P (MAP) 116/85 (95) Pulse Ox 99 O2 Delivery Room Air (BRAYAN DICKERSON) Diagnostic Imaging Diagonstic Imaging: Xray Plain Films/CT/US/NM/MRI: chest (2v) Comments No acute cardiopulmonary process noted. No osseous abnormalities or soft tissue changes acutely. Reviewed: Reviewed by Me (BRAYAN DICKERSON) Departure Impression Primary Impression: Muscle strain Additional Impression: Tightness in chest Disposition: 01 HOME, SELF-CARE Condition: Stable Departure-Patient Inst. Decision time for Depature: 22:27 (SEBASTIAN THOMPSON APRN) Referrals: GALA WOODY DO (PCP/Family) Primary Care Physician Patient Instructions: Muscle Strain, Chest Pain Add. Discharge Instructions: Tylenol and ibuprofen for pain control Follow-up with your doctor next week SEBASTIAN THOMPSON APRN Dec 04, 2018 22:28 BRAYAN DICKERSON Dec 04, 2018 22:59
[2018-12-04] MEDS ORDERED: METHOCARBAMOL 750 MG (ROBAXIN) TAB PO ONE (22:30)
[2018-12-04] MEDS ORDERED: IBUPROFEN 800 MG (MOTRIN) TAB PO ONE (22:30)
[2018-12-04 22:44] LABS: BASOPHILS % (AUTO) 0 % (0-10); EOSINOPHILS # (AUTO) 0.2 10^3/uL (0.0-0.3); EOSINOPHILS % (AUTO) 2 % (0-10); HEMATOCRIT 38 % (35-52); HEMOGLOBIN 13.2 G/DL (11.5-16.0); LYMPHOCYTES # (AUTO) 4.5 X 10^3 (1.0-4.0); LYMPHOCYTES % (AUTO) 49 % (12-44); MEAN CORPUSCULAR HEMOGLOBIN 30 PG (25-34); MEAN CORPUSCULAR HGB CONC 35 G/DL (32-36); MEAN CORPUSCULAR VOLUME 86 FL (80-99); MEAN PLATELET VOLUME 9.7 FL (7.4-10.4); MONOCYTES # (AUTO) 0.7 X 10^3 (0.0-1.0); MONOCYTES % (AUTO) 7 % (0-12); NEUTROPHILS # (AUTO) 3.8 X 10^3 (1.8-7.8); NEUTROPHILS % (AUTO) 41 % (42-75); PLATELET COUNT 347 10^3/uL (130-400); RED CELL DISTRIBUTION WIDTH 12.5 % (10.0-14.5); WHITE BLOOD COUNT 9.2 10^3/uL (4.3-11.0)
[2018-12-04 23:20] VITALS: BP 105/77
--- NOTE | 2018-12-05 08:06 | Diagnostic Imaging Report ---
PATIENT HISTORY: Chest pain/tightness. Right neck and arm pain. TECHNIQUE: Two views of the chest COMPARISON: None. FINDINGS: The lung volumes are normal. No focal consolidation is seen. No large pleural effusion or pneumothorax is seen. The cardiomediastinal silhouette is normal in size and contour. No acute osseous abnormality is seen. Mild right convex curvature of the thoracic spine is seen. IMPRESSION: No acute pulmonary abnormality seen. Dictated by: Dictated on workstation # [id number]
== END 2018-12-04 23:20 | disposition home or self-care (01) ==
LOC: EDUNIT# 22:16 → ER 22:18
DX: S46.911A Strain of unspecified muscle, fascia and tendon at shoulder and upper arm level, right arm, initial encounter (principal); R07.89 Other chest pain; Z82.49 Family history of ischemic heart disease and other diseases of the circulatory system; X58.XXXA Exposure to other specified factors, initial encounter
CPT/HCPCS: 36415; 71046; 84484; 84703; 85025; 93005

== ENCOUNTER 2022-03-30 11:38 | Emergency (ER) | payer BC ==
[~2022-03-30 11:38] MED LIST changes: +ACET-11 PO; -ACET1TAB43 PO
[2022-03-30] MEDS ORDERED: IOHEXOL 350 MG/ML 100 ML (OMNIPAQUE 350) VIAL IV ONE (12:15)
[2022-03-30] MEDS ORDERED: HOLD METFORMIN - RECEIVED CONTRAST 20 ML VIAL IV SCH (12:15)
[2022-03-30] MEDS ORDERED: NS 100 ML (IVPB) BAG IV ONE (12:15)
--- NOTE | 2022-03-30 13:08 | Diagnostic Imaging Report ---
Clinical indications: Patient with sore throat and swollen lymph nodes on left-sided of neck. Patient diagnosed was strep on [facility] and was given amoxicillin and still taking the antibiotics. EXAM: Axial CT scan the neck soft tissue performed with 75 mL of Omnipaque 350 IV contrast. Sagittal and coronal reformatted images are created. Auto Exposure Controls were utilized during the CT exam to meet ALARA standards for radiation dose reduction. COMPARISON: None. FINDINGS: There is soft tissue swelling involving the left palatine tonsil region. There is a lobulated configurated peripherally enhancing low-density fluid collection in the left retrotonsillar region. This fluid collection is difficult to measure in its entirety due to its configuration, but measures at least 1.9 cm x 2.1 cm x 3.8 cm (AP x Trans x CC) , and has a C shaped configuration. There is mild airway narrowing. There is cervical lymphadenopathy predominantly involving left side of the neck. 1.7 cm x 1.7 cm in greatest axial dimension in the left level 2A region. The nasopharynx, hypopharynx, and laryngeal structures show no significant abnormality. Slightly asymmetric prominence of the air-filled right piriform sinus region. Larynx and vocal cords show no significant abnormality. There are multiple small low-density nodules involving the bilateral thyroid lobes with the largest one measuring roughly 5 mm on the right. Salivary glands are unremarkable. The visualized portions of oral cavity, tongue, sublingual and submandibular regions are unremarkable. The visualized intracranial structures are unremarkable. The visualized upper lung franco are clear. There is straightening of the cervical spine posture. Otherwise cervical spine is unremarkable. There is minimal mucosal thickening involving ethmoid sinus and left maxillary sinus. IMPRESSION: 1: There is enlargement of the left palatine tonsil region concerning for tonsillitis with a left peritonsillar abscess. There is mild narrowing of the airway. 2: There is cervical lymphadenopathy with the left side affected the most. 3.: There are multiple low-density nodules involving the thyroid lobe. Nonemergent thyroid ultrasound would better evaluate. Dictated by: Dictated on workstation # [id number]
--- NOTE | 2022-03-30 13:09 | ED EENT ---
History of Present Illness General Chief Complaint: Oral/Throat Problems Stated Complaint: SORE THROAT/SWOLLEN GLANDS LEFT SIDE Nursing Triage Note: PT AMB TO FT WITH C/O SORE THROAT AND SWOLLEN LYMPH NODES ON L SIDE OF NECK. PT STATES SHE WAS DX WITH STREP ON FRIDAY AT [facility] AND WAS GIVEN AMOXICILLIN AND IS STILL TAKING THAT Source: patient Exam Limitations: no limitations History of Present Illness Date Seen by Provider: Mar 30, 2022 Time Seen by Provider: 11:50 Initial Comments Patient is a 26-year-old female who presents to the emergency department with worsening sore throat. Patient states she was diagnosed with strep on Friday and placed on amoxicillin. She states the symptoms seem to be improving until he began worsening again tomorrow. She states she has some swelling in her left neck as well as left-sided throat pain. She states that she called the clinic and was told she would have steroid called in for her but she has yet to receive it. She denies any drooling or inability to swallow. She dates she does have difficulty fully opening her mouth. Denies any muffled voice or inability to rotate her neck. She has not had a fever in several days. She states she has been taking Tylenol and ibuprofen for the pain. States her LMP was approximately 2 weeks ago. Allergies and Home Medications Allergies Coded Allergies: No Known Drug Allergies (Unverified , 04/11/13) Patient Home Medication List Home Medication List Reviewed: Yes Clindamycin HCl (Clindamycin HCl) 300 Mg Capsule, 300 MG PO Q6H Prescribed by: Celeste Muñiz on 03/30/22 1326 Review of Systems Review of Systems Constitutional: see HPI Eyes: No Symptoms Reported Ears: No Symptoms Reported Nose: no symptoms reported Mouth: no symptoms reported Throat: see HPI Respiratory: no symptoms reported Cardiovascular: no symptoms reported Gastrointestinal: no symptoms reported Past Ofyrwbz-Lckovx-Fpwpnb Hx Patient Social History Tobacco Use?: No Use of E-Cig and/or Vaping dev: No Substance use?: No Alcohol Use?: No Pt feels they are or have been: No Immunizations Up To Date Tetanus Booster (TDap): Unknown PED Vaccines UTD: Yes Influenza Vaccine Up-to-Date: No; Not Current First/Initial COVID19 Vaccinat: DENIES Seasonal Allergies Seasonal Allergies: No Past Medical History Surgery/Hospitalization HX: DENIES Surgeries: No Respiratory: No Cardiac: No Neurological: No Last Menstrual Period: Mar 20, 2022 Reproductive Disorders: No Genitourinary: No Gastrointestinal: No Musculoskeletal: No Endocrine: No HEENT: No Cancer: No Psychosocial: No Integumentary: No Blood Disorders: No Adverse Reaction/Blood Tranf: No Family Medical History Asthma 19 MOTHER Hypertension 19 FATHER No Pertinent Family Hx Physical Exam Vital Signs Vital Signs - First Documented 03/30/22 03/30/22 11:48 13:43 Temp 37.3 Pulse 101 Resp 18 B/P (MAP) 117/76 (90) Pulse Ox 99 O2 Delivery Room Air Height, Weight, BMI Height: 5'7.00" Weight: 150lbs. 0.0oz. 68.784218bz; 26.6 BMI Method:Stated General Appearance: WD/WN, no apparent distress Mouth/Throat: pharynx swelling Neck: full range of motion, supple, lymphadenopathy (L) Cardiovascular: regular rate, rhythm, no edema, no gallop, no JVD, no murmur Respiratory: chest non-tender, lungs clear Gastrointestinal: normal bowel sounds, non tender Neurologic/Psychiatric: alert, normal mood/affect, oriented x 3 Skin: normal color, warm/dry Progress/Results/Core Measures Results/Orders Lab Results Laboratory Tests Test 03/30/22 12:30 Range/Units Urine Test NEGATIVE NEGATIVE My Orders Orders - CELESTE MUÑIZ APRN Ct Neck (Soft Tissue) W (03/30/22 12:02) Iv/Invasive Line Insertion .IV INSERT (03/30/22 12:02) Hcg,Qualitative Urine (03/30/22 12:09) Iohexol Injection (Omnipaque 350 Mg/Ml 1 (03/30/22 12:15) Received Contrast (Hold Metformin- Contr (03/30/22 12:15) Ns (Ivpb) (Sodium Chloride 0.9% Ivpb Bag (03/30/22 12:15) Dexamethasone Injection (Decadron Inje (03/30/22 13:30) Clindamycin Capsule (Cleocin Capsule) (03/30/22 13:30) Medications Given in ED Current Medications Medications Dose Ordered Sig/Bill Route Start Time Stop Time Status Last Admin Dose Admin Clindamycin HCl 450 mg ONCE ONCE PO 03/30/22 13:30 03/30/22 13:31 DC 03/30/22 13:36 450 MG Iohexol 100 ml ONCE ONCE IV 03/30/22 12:15 03/30/22 12:16 DC 03/30/22 12:44 75 ML Sodium Chloride 100 ml ONCE ONCE IV 03/30/22 12:15 03/30/22 12:16 DC 03/30/22 12:45 80 ML Vital Signs/I&O 03/30/22 03/30/22 11:48 13:43 Temp 37.3 37.0 Pulse 101 101 Resp 18 18 B/P (MAP) 117/76 (90) 117/83 Pulse Ox 99 O2 Delivery Room Air Blood Pressure Mean: 90 Progress Progress Note : Progress Note Patient is nontoxic and well-hydrated on exam. She does have some left cervical adenopathy. Mild trismus is also noted. Patient does appear to have some erythema displacement of the left pharyngeal tissues concerning for possible peritonsillar abscess. Patient does not have a muffled voice and has full range of motion of her neck. Due to the trismus, I am unable to fully visualize the oropharynx. CT of the neck with contrast was ordered which does show left tonsillar enlargement and possible peritonsillar abscess versus phlegmon. Patient was given a dose of dexamethasone as well as a dose of clindamycin in the emergency department. She will be discharged home with clindamycin. Discussed importance of follow-up with otolaryngology for further evaluation and treatment. Return precautions for urgent symptomology discussed. Patient verbalized understanding. Departure Impression Primary Impression: Peritonsillar abscess Disposition: 01 HOME, SELF-CARE Condition: Stable Departure-Patient Inst. Decision time for Depature: 13:20 Referrals: MASOUD ESTRELLA MD, JACQUELINE S DO (PCP/Family) Primary Care Physician Patient Instructions: Peritonsillar Abscess, Adult (DC) Add. Discharge Instructions: It is very important to follow-up with otolaryngology for further evaluation. If you have any onset of complete inability to swallow, drooling, or any difficulty breathing please return to the emergency department as soon as possible for further evaluation. All discharge instructions reviewed with patient and/or family. Voiced understanding. Scripts Clindamycin HCl (Clindamycin HCl) 300 Mg Capsule 300 MG PO Q6H for 14 Days, #56 CAP 0 Refills Prov: CELESTE MUÑIZ APRN 03/30/22 CELESTE MUÑIZ APRN Mar 30, 2022 13:09
[2022-03-30] MEDS ORDERED: CLIN-144 PO (13:26)
[2022-03-30] MEDS ORDERED: CLINDAMYCIN 150 MG (CLEOCIN) CAP PO ONE (13:30)
[2022-03-30 13:43] VITALS: BP 117/83
== END 2022-03-30 13:43 | disposition home or self-care (01) ==
LOC: EDUNIT# 11:38 → ER 11:40
DX: J36 Peritonsillar abscess (principal); Z28.310 Unvaccinated for COVID-19
CPT/HCPCS: 70491; 84703

== ENCOUNTER → 2022-09-30 | Outpatient (CLI) | payer BC ==
[~2022-09-30] MED LIST changes: +CLIN-144 PO
--- NOTE | 2022-09-30 19:50 | Diagnostic Imaging Report ---
INDICATION: surveillance. Anatomic survey TECHNIQUE: Multiple real-time grayscale images were obtained over the gravid uterus. COMPARISON: None FINDINGS: Number: Single live Presentation: Breech Placenta: Posterior, not low-lying Amniotic Fluid: FLACO is 16.4 cm. Single largest vertical pocket is 6.7 cm. Heart Rate: 152 bpm BPD: 4.5 cm; consistent with 19 weeks and 5 days HC: 17.3 cm; consistent with 19 weeks and 6 days AC: 16.7 cm; consistent with 21 weeks and 5 days FL: 3.6 cm; consistent with 21 weeks and 2 days EGA from current exam: 20 weeks and 5 days gestation plus or minus 2 weeks CLINTON from current exam: 02/12/2023 CLINICAL DATES: Gestational age 20 weeks and 3 days, CLINTON 02/14/2023 EFW: 410 g +/- 60 grams; this is consistent with the 87th percentile. FINDINGS: anatomic survey was performed. The 3 vessel cord, cord insertion, umbilical arteries, and spine are not well visualized due to position. Right ventricular outflow tract is also not well-visualized. The kidneys, bladder, stomach, intracranial structures, and four-chamber heart are grossly unremarkable. IMPRESSION: 1. Single live intrauterine at approximately 20 weeks and 5 days, with an CLINTON of 02/12/2023. These are within acceptable range of clinical dates. 2. Limited anatomic survey as above. Follow-up is advised. 3. Borderline elevated growth percentile. This could be followed as well. Dictated by: Dictated on workstation # [id number]
== END ==
LOC: RAD 15:00
PROVIDERS: ATTEND Nurse Practitioner Women's Health
DX: Z34.02 Encounter for supervision of normal first pregnancy, second trimester (principal); Z3A.20 20 weeks gestation of pregnancy
CPT/HCPCS: 76805

== ENCOUNTER 2023-02-11 06:40 | Inpatient (IN) | payer BC ==
[~2023-02-11] VITALS: Ht 170.2 cm; Wt 86.2 kg
[2023-02-11] VITALS (72 sets, daily range): BP systolic 107–145; BP diastolic 57–102
[2023-02-11] MEDS ORDERED: LACTATED RINGERS 1,000 ML 500 ML IV PRN (06:45)
[2023-02-11] MEDS ORDERED: MINERAL OIL 30 ML UDC TOP PRN (06:45)
--- OUTSIDE RECORDS SUMMARY | 2023-02-11 06:46 | XMS REPORT ---
Author Author [facility] ter of [facility] ter [facility] Address Unknown Phone Unavailable Care Team Providers Care Line Construction Superintendent Name Role Phone FALGUNIFABIÁN Unavailable PROBLEMS No Known Problems ALLERGIES No Known Allergies ENCOUNTERS from 1997 to 2022-11-23 IMMUNIZATIONS SOCIAL HISTORY No smoking Hx information available REASON FOR REFERRAL No Information MEDICATIONS REASON FOR VISIT MENTAL STATUS ASSESSMENTS PLAN OF TREATMENT Insurance Providers MEDICATIONS ADMINISTERED
--- OUTSIDE RECORDS SUMMARY | 2023-02-11 06:46 | XMS REPORT ---
Author Author Thelma Cole [facility] Organization [facility] Address [address] [place] [address] Care Team Providers Care Foundation Drill Operator Name Role Phone GENOVEVA Cole Unavailable PROBLEMS Type Condition ICD9-CM Code [id number] Code Onset Dates Condition Status SNOMED Code Problem Other general medical examination for administrative purposes V70.3 Active [id number] ALLERGIES No Information ENCOUNTERS Encounter Location Date Diagnosis [facility] [address] [id number] [address] Mar, Encounter for immunization Z23 [facility] [id number], [place] [address] Oct, IMMUNIZATIONS No Known Immunizations SOCIAL HISTORY Never Assessed REASON FOR VISIT PLAN OF CARE VITAL SIGNS Height 67 in 2012-11-12 Weight 137.56 lbs 2012-11-12 Heart Rate 76 bpm 2012-11-12 Respiratory Rate 18 2012-11-12 Blood pressure systolic 102 mmHg Blood pressure diastolic 68 mmHg 2012-10 MEDICATIONS Unknown Medications RESULTS No Results PROCEDURES Procedure Date Ordered Result Body Site VISUAL ACUITY SCREEN November 12, 2012 INSTRUCTIONS MEDICATIONS ADMINISTERED No Known Medications
[2023-02-11] MEDS ORDERED: AMPICILLIN (IV) 2,000 MG in NS (IVPB) 50 ML 50 ML IV SCH (06:47)
[2023-02-11 07:15] LABS: BASOPHILS # (AUTO) 0.1 10^3/uL (0.0-0.1); BASOPHILS % (AUTO) 1 % (0-10); EOSINOPHILS # (AUTO) 0.1 10^3/uL (0.0-0.3); EOSINOPHILS % (AUTO) 1 % (0-10); HEMATOCRIT 31 % (35-52); LYMPHOCYTES # (AUTO) 3.2 10^3/uL (1.0-4.0); LYMPHOCYTES % (AUTO) 32 % (12-44); MEAN CORPUSCULAR HEMOGLOBIN 27 pg (25-34); MEAN CORPUSCULAR HGB CONC 33 g/dL (32-36); MEAN CORPUSCULAR VOLUME 83 fL (80-99); MEAN PLATELET VOLUME 10.5 fL (9.0-12.2); MONOCYTES # (AUTO) 0.9 10^3/uL (0.0-1.0); MONOCYTES % (AUTO) 9 % (0-12); NEUTROPHILS # (AUTO) 5.7 10^3/uL (1.8-7.8); NEUTROPHILS % (AUTO) 57 % (42-75); PLATELET COUNT 307 10^3/uL (130-400); WHITE BLOOD COUNT 10.1 10^3/uL (4.3-11.0)
--- NOTE | 2023-02-11 07:17 | History & Physical-OB ---
OB - Chief Complaint & HPI Date/Time Date of Admission: Date of Admission: Feb 11, 2023 at 06:40 Date seen by a Provider: Feb 11, 2023 Time Seen by a Provider: 07:15 Chief Complaint/History OB-Reason for Admission/Chief: Induction of Labor Hx : 3 Hx Para: 2 Gestational Age in Weeks: 39 Admission Nurse Assessment Rev: Yes Allergies and Home Medications Allergies Coded Allergies: No Known Drug Allergies (Unverified , 04/11/13) Patient Home Medication List Home Medication List Reviewed: Yes Clindamycin HCl (Clindamycin HCl) 300 Mg Capsule, 300 MG PO Q6H Prescribed by: Dakota Muñiz on 03/30/22 1326 OB - History Hx of Present Care: Yes Ultrasounds: Normal mid trimester US Obstetrical Complications: None Medical Complications: None Delivery History Hx Blood Disorders: No Adverse Rxn to Tranfusion: No Patient Past Medical History n/a Immunizations First/Initial COVID19 Vaccine: DENIES Hepatitis A: Yes Hepatitis B: Yes Tetanus Booster (TDap): Unknown OB - Admission Exam Physical Exam HEENT: NCAT Heart: Rhythm Normal Lungs: Clear Abdomen: Gravid Extremities: Normal Reflexes: Normal Cervical Dilatation: 3cm Effacement: 75% Station: -2 Membranes: Intact Heart Rate: 130's Accelerations: Accelerations Present Decelerations: No Decelerations Short Term Variability: Present Glue Mounter Operator Variability: Average (6-25) Contractions on Admission: < 5 Minutes Apart Intensity: Mild Labs Laboratory Tests Test 02/11/23 07:00 Range/Units OB - Assessment/Plan/Diagnosis Assessment Assessment: induction of labor Admission Dx 27 yo @ 39 weeks IOL Admission Status: Inpatient Order (span 2 midnights) Reason for Inpatient Admission: IOL at 39 weeks Plan Plan: Induction Induction Method: AROM MASOUD WILSON DO Feb 11, 2023 07:17
[2023-02-11] MEDS: D5 LR 1,000 ML IV SOLN 1,000 ML IV SCH ×2 (07:29→15:35)
[2023-02-11] MEDS ORDERED: OXYTOCIN DRIP PRE-MIX 500 ML IV ONE (11:30)
[2023-02-11] MEDS: AMPICILLIN (IV) 1,000 MG in NS (IVPB) 50 ML 50 ML IV SCH ×3 (11:47→19:32)
[2023-02-11] MEDS ORDERED: fentaNYL 2 mcg/ml BUPIVA 0.125 100 ML ONE (17:53)
[2023-02-11] MEDS ORDERED: OXYTOCIN DRIP PRE-MIX 500 ML IV SCH (18:15)
[2023-02-11] MEDS ORDERED: BUPIVACAINE 0.25% 10 ML VIAL ONE (18:52)
[2023-02-11] MEDS ORDERED: fentaNYL INJECTION 100 MCG/2 ML VIAL ONE (18:52)
[2023-02-11] MEDS ORDERED: CATHETER FLUSH 10 ML SYR IV PRN (19:30)
[2023-02-11] MEDS ORDERED: fentaNYL 2 mcg/ml BUPIVA 0.125 100 ML EPI SCH (19:30)
[2023-02-11] MEDS ORDERED: NALOXONE 0.4 MG/ML 1 ML VIAL IV PRN ×2 (19:30→22:00)
[2023-02-11] MEDS ORDERED: LACTATED RINGERS 1,000 ML 1,000 ML IV ONE (19:30)
[2023-02-11] MEDS ORDERED: LIDOCAINE 1% INJ 10 ML VIAL ONE (21:38)
[2023-02-11] MEDS ORDERED: LIDOCAINE 1% INJ 10 ML VIAL INJ ONE (22:00)
[2023-02-11] MEDS: IBUPROFEN 600 MG TABLET PO SCH (22:00)
[2023-02-11] MEDS ORDERED: Tetanus/Diphtheria/Pertussis (Acell) ADULT Vaccine 0.5 ML IM ONE (22:00)
[2023-02-11] MEDS ORDERED: WITCH HAZEL(TUCKS) 40 EA JAR TOP PRN (22:00)
[2023-02-11] MEDS ORDERED: CATHETER FLUSH 10 ML SYR IV SCH (22:00)
[2023-02-11] MEDS ORDERED: DIBUCAINE 1% OINTMENT 28 GM TUBE TOP PRN (22:00)
[2023-02-11] MEDS ORDERED: BENZOCAINE/MENTHOL (DERMOPLAST) 56 ML CAN TP PRN (22:00)
[2023-02-11] MEDS ORDERED: MEASLES, MUMPS, RUBELLA VACCINE (MMR) SQ ONE (22:00)
--- NOTE | 2023-02-11 22:01 | OB Labor & Delivery Record ---
L&D History Date of Service Date of Service: Feb 11, 2023 History Expected Date of Delivery: Feb 14, 2023 Gestational Age in Weeks: 39 Hx : 3 Hx Para: 2 Complications Events: Routine care Operative Indications (Cesarea: N/A-Vaginal Delivery Intrapartal Events: None L&D Stage1 Stage One Onset of Labor - Date: Feb 11, 2023 Monitors and Tracing Monitor Mode: External Heart Rate: 135 Monitor Accelerations: Uniform Station: -2 Tie Maker Variability: Average (6-10) Short Term Variability: Present Presentation: Vertex Vital Signs VS - Last 72 Hours, by Label 02/11/23 02/11/23 02/11/23 02/11/23 06:50 07:30 07:45 08:05 Temp 36.5 36.9 36.9 Pulse 107 82 78 77 Resp 18 20 20 20 B/P (MAP) 126/80 (95) 121/77 (92) 132/83 (99) Pulse Ox 98 O2 Delivery Room Air Room Air Room Air Room Air 02/11/23 02/11/23 02/11/23 02/11/23 08:30 08:45 09:00 09:15 Pulse 86 86 80 72 Resp 20 20 20 20 B/P (MAP) 132/85 (101) 129/86 (100) 109/63 (78) 128/80 (96) O2 Delivery Room Air Room Air Room Air Room Air 02/11/23 02/11/23 02/11/23 02/11/23 09:30 09:45 10:00 10:15 Pulse 71 71 70 73 Resp 20 20 20 20 B/P (MAP) 118/74 (89) 115/80 (92) 120/69 (86) 130/81 (97) O2 Delivery Room Air Room Air Room Air Room Air 02/11/23 02/11/23 02/11/23 02/11/23 10:30 10:45 11:00 11:15 Pulse 73 69 77 73 Resp 20 20 20 20 B/P (MAP) 119/76 (90) 121/75 (90) 126/74 (91) 129/85 (100) O2 Delivery Room Air Room Air Room Air Room Air 02/11/23 02/11/23 02/11/23 02/11/23 11:30 11:45 12:00 12:15 Temp 36.4 Pulse 73 79 60 61 Resp 20 20 20 20 B/P (MAP) 134/72 (92) 125/82 (96) 109/57 (74) 110/63 (79) O2 Delivery Room Air Room Air Room Air Room Air 02/11/23 02/11/23 02/11/23 02/11/23 12:30 12:45 13:00 13:15 Pulse 72 90 71 77 Resp 20 20 20 20 B/P (MAP) 107/61 (76) 128/83 (98) 120/77 (91) 120/76 (91) O2 Delivery Room Air Room Air Room Air Room Air 02/11/23 02/11/23 02/11/23 02/11/23 13:30 13:45 14:00 14:15 Temp 36.5 Pulse 75 84 85 69 Resp 20 20 20 20 B/P (MAP) 123/77 (92) 127/84 (98) 124/75 (91) 120/62 (81) O2 Delivery Room Air Room Air Room Air Room Air 02/11/23 02/11/23 02/11/23 02/11/23 14:30 14:45 15:00 15:15 Temp 37.1 Pulse 72 73 76 76 Resp 20 20 20 20 B/P (MAP) 111/59 (76) 136/84 (101) 128/73 (91) 129/71 (90) O2 Delivery Room Air Room Air Room Air Room Air 02/11/23 02/11/23 02/11/23 02/11/23 15:30 15:45 16:00 16:15 Temp 37.1 Pulse 88 78 75 77 Resp 20 20 20 20 B/P (MAP) 124/80 (95) 129/78 (95) 130/80 (97) 132/79 (96) O2 Delivery Room Air Room Air Room Air Room Air 02/11/23 02/11/23 02/11/23 02/11/23 16:30 16:45 17:00 17:15 Pulse 83 95 79 75 Resp 20 20 20 20 B/P (MAP) 138/81 (100) 127/78 (94) 133/79 (97) 134/77 (96) O2 Delivery Room Air Room Air Room Air Room Air 02/11/23 02/11/23 02/11/23 02/11/23 17:30 17:45 18:00 18:18 Temp 37.1 Pulse 83 85 86 81 Resp 20 20 20 20 B/P (MAP) 127/76 (93) 136/79 (98) 134/76 (95) 127/79 (95) O2 Delivery Room Air Room Air Room Air Room Air 02/11/23 02/11/23 02/11/23 02/11/23 18:30 18:45 18:55 19:00 Pulse 93 79 78 93 Resp 20 20 20 20 B/P (MAP) 132/75 (94) 136/75 (95) 132/73 (92) 139/77 (97) Pulse Ox 100 O2 Delivery Room Air Room Air Room Air Room Air 02/11/23 02/11/23 02/11/23 02/11/23 19:05 19:08 19:12 19:16 Pulse 103 96 100 95 Resp 20 20 20 B/P (MAP) 144/82 (102) 133/82 (99) 134/74 (94) 133/77 (95) Pulse Ox 100 100 100 100 O2 Delivery Room Air Room Air Room Air Room Air 02/11/23 02/11/23 02/11/23 02/11/23 19:20 19:23 19:28 19:32 Pulse 93 97 97 114 B/P (MAP) 128/70 (89) 131/70 (90) 136/84 (101) 129/74 (92) Pulse Ox 100 100 100 O2 Delivery Room Air Room Air Room Air Room Air 02/11/23 02/11/23 02/11/23 02/11/23 19:36 19:40 19:44 19:48 Pulse 107 94 88 75 B/P (MAP) 131/72 (91) 130/70 (90) 134/77 (96) 134/73 (93) Pulse Ox 100 100 100 O2 Delivery Room Air Room Air Room Air Room Air 02/11/23 02/11/23 02/11/23 20:03 20:19 20:33 Temp 36.7 Pulse 106 85 93 B/P (MAP) 133/69 (90) 135/79 (97) 134/81 (98) Rupture of Membranes Spontaneous Ruture of Membrane: No Amniotic Membrane Rupture Time: 722 Amniotic Membrane Fluid Desc.: Clear Vaginal Bleeding Description: Normal Show Induction/Anesthesia Epidural Cath Placement - Time: 1905 Progress/Notes Patient admitted for IOL at 39 weeks. AROM performed and Ampicillin started for GBS prophylaxis. She received 2 doses at which point labor was augmented to pitocin, after this epidural was placed and she progressed to complete and + 2 station. L&D Stage2 Stage Two Stage II Date: Feb 11, 2023 Monitors and Tracing Monitor Mode: External Heart Rate: 135 Monitor Decelerations: Variable Half-Way Variability: Average (6-10) Short Term Variability: Present Position: Right Occiput Anterior Presentation: Vertex Cord Descript/Complications Cord Vessel Description: 3 Vessels Complications nuchal cord reduced x 1 Delivery Type Delivery Method: Spontaneous Vaginal Anterior Shoulder: Left Episiotomy/Perineal Laceration Laceraction(s)/Extensions: Yes Episiotomy Description: Periurethral Extnsion/lac, 1st degree Degree (describe repair) laceration repaired using 3-0 vicryl in usual fashion Condition of Delivery 1 minute Comment: 8 5 minute Comment: 9 Notes Live female infant weight 7lbs 6 oz Condition of Infant Condition of : Living Exam: No Observed Abnormalities Resuscitation Resuscitation: N/A - Spontaneous Resp L&D Stage3 Stage Three Stage III Date: Feb 11, 2023 Pictocin Pitocin Administration mu/min: 12 Pitocin ml/hr: 12 Pitocin Administration Comment: 30 mu wide open after delivery of placenta Placenta Delivery Placenta Delivery: Spontaneous Delivery Summary Summary Estimated blood loss (mL): 250 Attending at delivery: Masoud Wilson DO Condition of Delivery Examined: Cervix Examined, Uterus Explored Post Hemorrhage: No Condition of Mother stable Condition of (s) stable MASOUD WILSON DO Feb 11, 2023 22:01
--- NOTE | 2023-02-11 22:02 | Discharge Inst-Women's Service ---
Discharge Inst-Women's Serv Depart Medication/Instructions New, Converted or Re-Newed RX: Transmitted to Pharmacy Final Diagnosis PPD 2 NVD Problems Reviewed?: Yes Consults/Follow Up Additional Follow Up: Yes Orders/Referrals Dr. Wilson in 6 weeks Activity Activity: Activity as Tolerated Driving Instructions: No Driving for 1 Week NO SMOKING: NO SMOKING Nothing Inside Vagina: No Douching, No [place], No Tampons Diet Discharge Diet: No Restrictions Symptoms to Report to : Bleeding Excessive, Pain Increased, Fever Over 101 Degrees F, Vaginal Bleeding Increase, Questions/Concerns For Any Problems or Questions: Contact Your Physician MASOUD WILSON DO Feb 11, 2023 22:02
[2023-02-11] MEDS ORDERED: PNV1TABL67 PO (22:03)
[2023-02-11] MEDS ORDERED: IBUP-844 PO (22:03)
[2023-02-11] MEDS ORDERED: ACET-93 PO (22:03)
[2023-02-11] MEDS ORDERED: FERR325T24 PO (22:03)
[2023-02-11] MEDS ORDERED: DIBU30OI TOP (22:03)
[2023-02-11] MEDS ORDERED: DOCU100C37 PO (22:03)
[2023-02-11] MEDS ORDERED: BENZ78AE5 TP (22:03)
[2023-02-11] MEDS: OXYTOCIN DRIP PRE-MIX 500 ML IV SCH ×2 (22:24→22:52)
[2023-02-11] MEDS: ACETAMINOPHEN 500 MG TABLET PO PRN (23:26)
[2023-02-12] VITALS (7 sets, daily range): BP systolic 119–130; BP diastolic 69–86
[2023-02-12] MEDS: IBUPROFEN 600 MG TABLET PO SCH ×4 (04:58→21:45)
[2023-02-12 05:36] LABS: BASOPHILS # (AUTO) 0.1 10^3/uL (0.0-0.1); BASOPHILS % (AUTO) 0 % (0-10); EOSINOPHILS # (AUTO) 0.1 10^3/uL (0.0-0.3); EOSINOPHILS % (AUTO) 0 % (0-10); HEMATOCRIT 27 % (35-52); HEMOGLOBIN 8.9 g/dL (11.5-16.0); LYMPHOCYTES # (AUTO) 3.3 10^3/uL (1.0-4.0); LYMPHOCYTES % (AUTO) 18 % (12-44); MEAN CORPUSCULAR HEMOGLOBIN 28 pg (25-34); MEAN CORPUSCULAR HGB CONC 33 g/dL (32-36); MEAN CORPUSCULAR VOLUME 83 fL (80-99); MEAN PLATELET VOLUME 10.7 fL (9.0-12.2); MONOCYTES % (AUTO) 11 % (0-12); NEUTROPHILS # (AUTO) 12.6 10^3/uL (1.8-7.8); NEUTROPHILS % (AUTO) 69 % (42-75); PLATELET COUNT 266 10^3/uL (130-400); WHITE BLOOD COUNT 18.1 10^3/uL (4.3-11.0)
--- NOTE | 2023-02-12 08:05 | Postpartum Progress Note ---
Note Note Day # 1 Subjective: Patient is without complaints. Ambulating, voiding. Tolerating a regular diet without nausea or vomiting. Normal lochia. Pain is well controlled with oral pain medications. Objective: Physical Exam: General - Alert and oriented, no apparent distress Abdomen - Soft, appropriately tender to palpation, non-distended, fundus firm at umbilicus Extremities - no edema, negative [place]'s bilaterally Assessment: PPD 1 NVD Acute blood loss anemia Plan: Routine care. Encourage breast feeding. Encourage ambulation. Ferrous sulfate supplementation. Plan for discharge tomorrow Vitals - Labs Vital Signs - I&O Vital Signs Date Time Temp Pulse Resp B/P (MAP) Pulse Ox O2 Delivery O2 Flow Rate FiO2 02/12/23 07:41 36.0 62 20 119/79 (92) Room Air 02/12/23 04:43 36.2 58 20 128/79 (95) 99 Room Air 02/12/23 00:33 37.1 67 16 125/77 (93) 100 Room Air 02/12/23 00:02 93 129/72 (91) 02/11/23 23:32 86 127/61 (83) 02/11/23 22:47 92 127/62 (83) 02/11/23 22:32 105 134/73 (93) 02/11/23 22:17 104 127/89 (102) 02/11/23 22:03 100 131/88 (102) 02/11/23 21:47 101 138/102 (114) 02/11/23 21:34 133 144/90 (108) 02/11/23 21:03 145/78 (100) 02/11/23 20:49 143/85 (104) 02/11/23 20:33 36.7 93 134/81 (98) 02/11/23 20:19 85 135/79 (97) 02/11/23 20:03 106 133/69 (90) 02/11/23 19:48 75 134/73 (93) 100 Room Air 02/11/23 19:44 88 134/77 (96) Room Air 02/11/23 19:40 94 130/70 (90) 100 Room Air 02/11/23 19:36 107 131/72 (91) 100 Room Air 02/11/23 19:32 114 129/74 (92) 100 Room Air 02/11/23 19:28 97 136/84 (101) 100 Room Air 02/11/23 19:23 97 131/70 (90) Room Air 02/11/23 19:20 93 128/70 (89) 100 Room Air 02/11/23 19:16 95 133/77 (95) 100 Room Air 02/11/23 19:12 100 20 134/74 (94) 100 Room Air 02/11/23 19:08 96 20 133/82 (99) 100 Room Air 02/11/23 19:05 103 20 144/82 (102) 100 Room Air 02/11/23 19:00 93 20 139/77 (97) 100 Room Air 02/11/23 18:55 78 20 132/73 (92) Room Air 02/11/23 18:45 79 20 136/75 (95) Room Air 02/11/23 18:30 93 20 132/75 (94) Room Air 02/11/23 18:18 37.1 81 20 127/79 (95) Room Air 02/11/23 18:00 86 20 134/76 (95) Room Air 02/11/23 17:45 85 20 136/79 (98) Room Air 02/11/23 17:30 83 20 127/76 (93) Room Air 02/11/23 17:15 75 20 134/77 (96) Room Air 02/11/23 17:00 79 20 133/79 (97) Room Air 02/11/23 16:45 95 20 127/78 (94) Room Air 02/11/23 16:30 83 20 138/81 (100) Room Air 02/11/23 16:15 37.1 77 20 132/79 (96) Room Air 02/11/23 16:00 75 20 130/80 (97) Room Air 02/11/23 15:45 78 20 129/78 (95) Room Air 02/11/23 15:30 88 20 124/80 (95) Room Air 02/11/23 15:15 37.1 76 20 129/71 (90) Room Air 02/11/23 15:00 76 20 128/73 (91) Room Air 02/11/23 14:45 73 20 136/84 (101) Room Air 02/11/23 14:30 72 20 111/59 (76) Room Air 02/11/23 14:15 69 20 120/62 (81) Room Air 02/11/23 14:00 85 20 124/75 (91) Room Air 02/11/23 13:45 84 20 127/84 (98) Room Air 02/11/23 13:30 36.5 75 20 123/77 (92) Room Air 02/11/23 13:15 77 20 120/76 (91) Room Air 02/11/23 13:00 71 20 120/77 (91) Room Air 02/11/23 12:45 90 20 128/83 (98) Room Air 02/11/23 12:30 72 20 107/61 (76) Room Air 02/11/23 12:15 61 20 110/63 (79) Room Air 02/11/23 12:00 60 20 109/57 (74) Room Air 02/11/23 11:45 79 20 125/82 (96) Room Air 02/11/23 11:30 36.4 73 20 134/72 (92) Room Air 02/11/23 11:15 73 20 129/85 (100) Room Air 02/11/23 11:00 77 20 126/74 (91) Room Air 02/11/23 10:45 69 20 121/75 (90) Room Air 02/11/23 10:30 73 20 119/76 (90) Room Air 02/11/23 10:15 73 20 130/81 (97) Room Air 02/11/23 10:00 70 20 120/69 (86) Room Air 02/11/23 09:45 71 20 115/80 (92) Room Air 02/11/23 09:30 71 20 118/74 (89) Room Air 02/11/23 09:15 72 20 128/80 (96) Room Air 02/11/23 09:00 80 20 109/63 (78) Room Air 02/11/23 08:45 86 20 129/86 (100) Room Air 02/11/23 08:30 86 20 132/85 (101) Room Air I & O 02/12/23 06:59 Intake Total 2490 ml Balance 2490 ml Labs Laboratory Tests 02/12/23 05:09: White Blood Count 18.1H, Red Blood Count 3.23L, Hemoglobin 8.9L, Hematocrit 27L, Mean Corpuscular Volume 83, Mean Corpuscular Hemoglobin 28, Mean Corpuscular Hemoglobin Concent 33, Red Cell Distribution Width 13.5, Platelet Count 266, Mean Platelet Volume 10.7, Immature Granulocyte % (Auto) 1, Neutrophils (%) (Auto) 69, Lymphocytes (%) (Auto) 18, Monocytes (%) (Auto) 11, Eosinophils (%) (Auto) 0, Basophils (%) (Auto) 0, Neutrophils # (Auto) 12.6H, Lymphocytes # (Auto) 3.3, Monocytes # (Auto) 2.0H, Eosinophils # (Auto) 0.1, Basophils # (Au to) 0.1, Immature Granulocyte # (Auto) 0.1 MASOUD WILSON DO Feb 12, 2023 08:05
[2023-02-12] MEDS: PRENATAL VITAMIN TABLET PO SCH (10:11)
[2023-02-12] MEDS: FERROUS SULFATE 325 MG (IRON) TABLET PO SCH (10:12)
[2023-02-12] MEDS: DOCUSATE SODIUM 100 MG CAPSULE PO SCH ×2 (10:12→21:45)
[2023-02-12] MEDS: ACETAMINOPHEN 500 MG TABLET PO PRN ×2 (13:28→21:45)
--- NOTE | 2023-02-12 14:37 | Anesthesia-Regional Post-Op ---
Regional Patient Condition Mental Status: Alert, Oriented x3 Circulation: Same as Pre-Op Headache: Absent Sensation: Full Recovery Motor Block: Absent Post Op Complications Complications None Follow Up Care/Instructions Patient Instructions None needed. Anesthesia/Patient Condition Patient is doing well, no complaints, stable vital signs, no apparent adverse anesthesia problems. No complications reported per nursing. EMERSON ISAACS DO Feb 12, 2023 14:37
[2023-02-13 05:20] VITALS: BP 137/86
[2023-02-13] MEDS: IBUPROFEN 600 MG TABLET PO SCH (05:20)
[2023-02-13] MEDS: ACETAMINOPHEN 500 MG TABLET PO PRN (05:20)
[2023-02-13 08:00] VITALS: BP 113/72
--- NOTE | 2023-02-13 08:06 | Postpartum Progress Note ---
Note Note Day # 2 Subjective: Patient is without complaints. Ambulating, voiding. Tolerating a regular diet without nausea or vomiting. Normal lochia. Pain is well controlled with oral pain medications. Objective: Physical Exam: General - Alert and oriented, no apparent distress Abdomen - Soft, appropriately tender to palpation, non-distended, fundus firm at umbilicus Extremities - no edema, negative [place]'s bilaterally Assessment: PPD 2 NVD Acute blood loss anemia Plan: Routine care. Encourage breast feeding. Encourage ambulation. Ferrous sulfate supplementation. Plan for discharge today Vitals - Labs Vital Signs - I&O Vital Signs Date Time Temp Pulse Resp B/P (MAP) Pulse Ox O2 Delivery O2 Flow Rate FiO2 02/13/23 05:20 36.3 63 18 137/86 (103) 98 Room Air 02/12/23 21:45 36.2 63 18 130/86 (101) 98 Room Air 02/12/23 16:32 36.0 62 20 128/81 (97) Room Air 02/12/23 13:25 36.0 83 20 129/69 (89) Room Air MASOUD WILSON DO Feb 13, 2023 08:06
[2023-02-13] MEDS: DOCUSATE SODIUM 100 MG CAPSULE PO SCH (08:41)
[2023-02-13] MEDS: PRENATAL VITAMIN TABLET PO SCH (08:41)
[2023-02-13] MEDS: FERROUS SULFATE 325 MG (IRON) TABLET PO SCH (08:41)
[2023-02-13] MEDS ORDERED: IBUPROFEN 600 MG TABLET PO SCH (11:00)
== END 2023-02-13 12:50 | disposition home or self-care (01) | DRG 806 ==
LOC: LDRP 06:40
PROVIDERS: ADMIT Obstetrics & Gynecology; ATTEND Obstetrics & Gynecology
PROC: 10E0XZZ Delivery of Products of Conception, External Approach (ICD-10-PCS; principal; 2023-02-11)
PROC: 0HQ9XZZ Repair Perineum Skin, External Approach (ICD-10-PCS; 2023-02-11)
PROC: 10907ZC Drainage of Amniotic Fluid, Therapeutic from Products of Conception, Via Natural or Artificial Opening (ICD-10-PCS; 2023-02-11)
DX: O69.81X0 Labor and delivery complicated by cord around neck, without compression, not applicable or unspecified (principal); D62 Acute posthemorrhagic anemia; Z37.0 Single live birth; Z3A.39 39 weeks gestation of pregnancy; O70.0 First degree perineal laceration during delivery; O90.81 Anemia of the puerperium
CPT/HCPCS: 36415; 85025; 86780; 86850; 86900; 86901